=== PATIENT | female | born 1985 | race Two or more races ===

== ENCOUNTER 2019-07-19 15:06 | Emergency (ER) | payer MEDICAID ==
[~2019-07-19] VITALS: Ht 162.6 cm; Wt 77.1 kg
--- NOTE | 2019-07-19 15:18 | NUR ---
ED Nurse Note: pt came to ED c/o chest pain substernal radiating from epigastric area, pt reports nausea and vomiting as well but denies diarrhea. pt AA&ox4, gcs=15, skin warm and dry, resp even and unlabored on RA, -n/v/d at this time, vss, will cont monitor. daughter at the bedside.
[2019-07-19 15:19] VITALS: BP 128/81
[2019-07-19] MEDS ORDERED: Ketorolac 30mg Inj IV ONE (15:30)
--- NOTE | 2019-07-19 15:36 | Emergency Room Report ---
History of Present Illness General Chief Complaint: Chest Pain Source: Patient, EMS Present Illness HPI Disclaimer: Please note that this report is being documented using DRAGON technology. This can lead to erroneous entry secondary to incorrect interpretation by the dictating instrument. HPI: 34-year-old female with no reported medical history presents for evaluation of chest pain and vomiting. Patient is primarily Mauritian-speaking and history was obtained through the help of an lang interpreter. She notes 5 days of substernal sharp chest pain that is nonradiating. No associated shortness of breath. States she had a nonproductive cough this morning but otherwise has denied any cough, fevers, chills. She did note several days of vomiting and upper abdominal cramping. She has felt some heartburn symptoms over the past 2 days. Currently, her chest pain is resolving and only a 2/10. He denies any shortness of breath or lower extremity swelling. Denies any dysuria, hematuria. LMP was 7 days ago. Patient states she had a similar episode of chest pain very similar to this approximately 2 months ago but she did not seek medical attention and it resolved on its own. She has taken some trazodone over the past 2 days to help her sleep otherwise takes no medications. PMH: Insomnia PSH: section Allergies: None Social Hx: Denies alcohol, tobacco or drug use Allergies: Coded Allergies: No Known Allergies (Unverified , 07/19/19) Patient History Last Menstrual Period: 07/18/2019 Now: No Nursing Documentation-PMH Past Medical History: No History, Except For Hx Hypertension: Yes Review of Systems All Other Systems: negative except mentioned in HPI Physical Exam Vital Signs Date Time Temp Pulse Resp B/P (MAP) Pulse Ox O2 Delivery O2 Flow Rate FiO2 07/19/19 15:03 99.0 84 18 131/86 (101) 100 Room Air General: Awake and alert, no acute distress HEENT: NC/AT. EOMI. dry mucous membranes Neck: Supple, trachea midline Chest Wall: Diffusely tender to palpation over the sternum, no deformity Cardiovascular: RRR. S1 and S2 normal. No murmur appreciated Resp: Normal work of breathing. No cough, wheezing or crackles appreciated Abdomen: Abdomen is soft, nondistended, obese. It is in the right upper quadrant, epigastrium and left upper quadrant. No rebound. No masses. Skin: Intact. No abrasions, laceration or rash over the exposed skin MSK: Normal tone and bulk. Moving all extremities. No obvious deformity. No lower extremity edema. Neuro: Awake and alert. Mentating appropriately. Medical Decision Making Diagnostic Impression: Primary Impression: Chest pain Additional Impressions: Anxiety GERD (gastroesophageal reflux disease) Hypokalemia ER Course This a 34-year-old female presented for evaluation of 5 days sharp chest pain, some pleuritic quality to it, brief cough that began this morning, several episodes of emesis over the past 2 days. Differential includes was not limited to URI, bronchitis, pneumonia, pneumothorax, Boerhaave syndrome, gastroenteritis , ACS, unstable angina, GERD. Will start a broad work-up, treat the patient symptomatically obtain EKG, chest x-ray as part of cardiac work-up. Laboratory Tests Test 07/19/19 15:17 White Blood Count 10.1 K/UL (4.8-10.8) Red Blood Count 3.98 M/UL (4.20-5.40) L Hemoglobin 12.4 G/DL (12.0-16.0) Hematocrit 35.4 % (37.0-47.0) L Mean Corpuscular Volume 89 FL (80-99) Mean Corpuscular Hemoglobin 31.2 PG (27.0-31.0) H Mean Corpuscular Hemoglobin Concent 35.1 G/DL (32.0-36.0) Red Cell Distribution Width 11.5 % (11.6-14.8) L Platelet Count 284 K/UL (150-450) Mean Platelet Volume 8.5 FL (6.5-10.1) Neutrophils (%) (Auto) 74.9 % (45.0-75.0) Lymphocytes (%) (Auto) 19.0 % (20.0-45.0) L Monocytes (%) (Auto) 5.2 % (1.0-10.0) Eosinophils (%) (Auto) 0.4 % (0.0-3.0) Basophils (%) (Auto) 0.6 % (0.0-2.0) Sodium Level 143 MMOL/L (136-145) Potassium Level 3.2 MMOL/L (3.5-5.1) L Chloride Level 108 MMOL/L (98-107) H Carbon Dioxide Level 24 MMOL/L (21-32) Anion Gap 11 mmol/L (5-15) Blood Urea Nitrogen 10 mg/dL (7-18) Creatinine 0.9 MG/DL (0.55-1.30) Estimate Glomerular Filtration Rate > 60 mL/min (>60) Glucose Level 113 MG/DL (74-106) H Calcium Level 9.6 MG/DL (8.5-10.1) Total Bilirubin 0.4 MG/DL (0.2-1.0) Aspartate Amino Transferase (AST) 14 U/L (15-37) L Alanine Aminotransferase (ALT) 20 U/L (12-78) Alkaline Phosphatase 92 U/L (46-116) Total Creatine Kinase 45 U/L (26-308) Creatine Kinase MB < 0.5 NG/ML (0.0-3.6) Creatine Kinase MB Relative Index 1.1 Troponin I 0.000 ng/mL (0.000-0.056) Total Protein 7.7 G/DL (6.4-8.2) Albumin 3.7 G/DL (3.4-5.0) Globulin 4.0 g/dL Albumin/Globulin Ratio 0.9 (1.0-2.7) L EKG Diagnostic Results EKG Time: 15:14 Rate: normal Rhythm: NSR ST Segments: no acute changes Other Impression Normal axis, normal intervals, no acute ischemic changes. Rhythm Strip Diag. Results Rhythm Strip Time: 15:14 EP Interpretation: yes Rate: 70s Rhythm: NSR Chest X-Ray Diagnostic Results Chest X-Ray Diagnostic Results : Chest X-Ray Ordered: Yes # of Views/Limited/Complete: 1 View Indication: Chest Pain EP Interpretation: Yes Interpretation: no consolidation, no effusion, no pneumothorax Impression: No acute disease Electronically Signed by: Electronically signed by Dr. Sylvester Medrano Reevaluation Time: 18:37 Last Vital Signs Date Time Temp Pulse Resp B/P (MAP) Pulse Ox O2 Delivery O2 Flow Rate FiO2 07/19/19 15:19 99.0 81 18 128/81 100 Room Air Status: improved Reevaluation Impression EKG unremarkable. Labs are largely within normal limits aside from a slightly low potassium. Troponin is negative. Chest x-ray unremarkable and shows no acute infection, no pneumothorax and a normal mediastinum. The patient is now describing more GERD related symptoms such as burning in the epigastrium radiating up through the chest. She was given famotidine and a GI cocktail with some improvement. She was still complaining of tightness that was relieved completely by 1 mg of oral Ativan. She did appear anxious and I believe that there is an anxiety component to her presentation today. We did discuss an appropriate diet to treat heartburn and will start the patient on twice daily famotidine as well as 5 days of potassium repletion. We discussed need for follow-up with her PMD within the next few days to discuss this emergency department visit and for further evaluation of acid reflux disease. We also discussed the reasons to return to the emergency department with patient and family who are present at bedside. She understands and agrees with this treatment plan will be discharged home. Disposition: HOME, SELF-CARE Condition: Improved Scripts Potassium Chloride* (K-DUR*) 20 Meq Tab.er.prt 20 MEQ ORAL DAILY, #5 TAB 0 Refills Prov: Sylvester Medrano MD 07/19/19 Famotidine (FAMOTIDINE) 20 Mg Tablet 20 MG ORAL TWICE A DAY, #60 TAB 0 Refills Prov: Sylvester Medrano MD 07/19/19 Sylvester Medrano MD Jul 19, 2019 15:36
[2019-07-19] MEDS ORDERED: TRAZODONE HCL50 MG ORAL (15:52)
[2019-07-19] MEDS ORDERED: PEPTO-BISMOL262 M1 PO (15:52)
[2019-07-19 16:02] LABS: ANION GAP 11 mmol/L (5-15); BLOOD UREA NITROGEN 10 mg/dL (7-18); CALCIUM 9.6 MG/DL (8.5-10.1); CARBON DIOXIDE 24 MMOL/L (21-32); CHLORIDE 108 MMOL/L (98-107); CREATININE 0.9 MG/DL (0.55-1.30); POTASSIUM 3.2 MMOL/L (3.5-5.1); SODIUM 143 MMOL/L (136-145)
[2019-07-19 16:03] LABS: BASOPHILS % (AUTO) 0.6 % (0.0-2.0); EOSINOPHILS % (AUTO) 0.4 % (0.0-3.0); HEMATOCRIT 35.4 % (37.0-47.0); HEMOGLOBIN 12.4 G/DL (12.0-16.0); MEAN CORPUSCULAR VOLUME 89 FL (80-99); MONOCYTES % (AUTO) 5.2 % (1.0-10.0); NEUTROPHILS % (AUTO) 74.9 % (45.0-75.0); PLATELET COUNT 284 K/UL (150-450); RED BLOOD COUNT 3.98 M/UL (4.20-5.40); RED CELL DISTRIBUTION WIDTH 11.5 % (11.6-14.8); WHITE BLOOD COUNT 10.1 K/UL (4.8-10.8)
[2019-07-19 16:16] LABS: ALANINE AMINOTRANSFERASE 20 U/L (12-78); ALBUMIN 3.7 G/DL (3.4-5.0); ALBUMIN/GLOBULIN RATIO 0.9 (1.0-2.7); ALKALINE PHOSPHATASE 92 U/L (46-116); ASPARTATE AMINO TRANSFERASE 14 U/L (15-37); BILIRUBIN,TOTAL 0.4 MG/DL (0.2-1.0); CKMB < 0.5 NG/ML (0.0-3.6); CREATINE KINASE 45 U/L (26-308)
[2019-07-19 16:19] VITALS: BP 115/65
--- NOTE | 2019-07-19 16:40 | NUR ---
ED Nurse Note: pt reports her pain is still there and has acid reflux, ermd notified.
[2019-07-19] MEDS ORDERED: Dicyclomine HCl 10mg/5ml oral soln ORAL ONE (16:45)
[2019-07-19] MEDS ORDERED: Mylanta II UD 30ml ORAL ONE (16:45)
[2019-07-19] MEDS ORDERED: Lidocaine 2% Visc 15ml soln ORAL ONE (16:45)
--- NOTE | 2019-07-19 16:48 | Diagnostic Imaging Report ---
Indication: Chest pain Technique: One view of the chest Comparison: none Findings: Lungs and pleural spaces are clear. Heart size is normal. Impression: No acute process
[2019-07-19 17:19] VITALS: BP 105/86
--- NOTE | 2019-07-19 17:20 | NUR ---
ED Nurse Note: noted pt crying, pt reports she is anxious and reports she gets anxiety and depression, ERMD notified.
[2019-07-19] MEDS ORDERED: LORazepam 1mg tab ORAL ONE (17:30)
[2019-07-19] MEDS ORDERED: LORazepam 1mg tab ONE (17:32)
--- NOTE | 2019-07-19 17:50 | NUR ---
ED Nurse Note: pt reports feeling better with medication, smiling and calm, family at the bedside, vss, will cont monitor.
[2019-07-19] MEDS ORDERED: FAMOTIDINE20 MG ORAL (18:36)
[2019-07-19] MEDS ORDERED: POTASSIUM CHLO20 ME1 ORAL (18:39)
--- NOTE | 2019-07-19 18:50 | NUR ---
ED Nurse Note: pt cleared to be d/c per ER provider, pt discharge and aftercare instruction provided w/ prescription, pt education done via discussion and handout, pt advised to follow up with pcp or return to ed if changes in condition, pt verbalized understanding, vss, ambulatory w/ steady gait, iv d/c and id band removed, left w/ all belongings. pt accompanied by and daughter.
[2019-07-19 18:55] VITALS: BP 110/56
--- NOTE | 2019-07-20 11:01 | Cardiology Report ---
APPROVED REPORT EKG Measurement Heart [id number] Normal sinus rhythm with sinus arrhythmia Normal ECG
== END 2019-07-19 18:55 | disposition home or self-care (01) ==
LOC: EDBD 15:06 → EMR 15:37
DX: K21.9 Gastro-esophageal reflux disease without esophagitis (principal); R07.9 Chest pain, unspecified; F41.9 Anxiety disorder, unspecified; E87.6 Hypokalemia; I10 Essential (primary) hypertension; G47.00 Insomnia, unspecified
CPT/HCPCS: 36415; 71045; 80053; 82550; 82553; 84484; 85025; 93005; 96374; 96375; 99284; J1885; J2405; S0028